=== PATIENT | male | born 1985 | race American Indian/Alaskan Native ===

== ENCOUNTER 2016-06-20 15:30 | Emergency (ER) | payer OTHER ==
[2016-06-20 17:36] LABS: Basophils % (Auto) 0.3 % (0.0-1.8); Eosinophils % (Auto) 1.4 % (0.0-4.3); Hematocrit 43.8 % (35.5-45.6); Hemoglobin 14.3 gm/dl (11.8-15.2); Mean Corpuscular HGB Conc 33 % (32-34); Mean Corpuscular Hemoglobin 31 pg (28-32); Mean Corpuscular Volume 94 fl (84-94); Platelet Count 212 K/mm3 (140-440); Red Blood Count 4.67 M/mm3 (3.65-5.03); Red Cell Distribution Width 13.6 % (13.2-15.2); White Blood Count 8.6 K/mm3 (4.5-11.0)
[2016-06-20 17:45] LABS: Anion Gap 15 mmol/L; Blood Urea Nitrogen 8 mg/dL (9-20); Carbon Dioxide 30 mmol/L (22-30); Glucose 79 mg/dL (75-100); Potassium 3.7 mmol/L (3.6-5.0); Sodium 141 mmol/L (137-145)
[2016-06-20 18:20] LABS: Urine Drugs of Abuse Note Disclamer
[2016-06-20 18:50] LABS: Bilirubin,Urine NEG (Negative); Blood,Urine NEG (Negative); Ketones,Urine NEG (Negative); Leukocyte Esterase,Urine NEG (Negative); Mucus,Urine 1+ /HPF; Nitrite,Urine NEG (Negative); Protein,Urine <15 mg/dL mg/dL (Negative); Urobilinogen,Urine < 2.0 mg/dL (<2.0)
--- NOTE | 2016-06-20 19:29 | Emergency Department Report ---
Chief Complaint: Psych Stated Complaint: SUICIDAL THOUGHTS/DEPRESSION Time Seen by Provider: 06/20/16 19:28 - HPI History of Present Illness: This is a 30-year-old patient who reports that he suicidal 2-3 years. He said his been having suicidal thoughts for 2-3 years. He said the plan is to do something quicken easily. He said he has a history of depression and ADHD but he is not on any treatment. She said he was on treatment in the past which worked very well but he stopped. He said that he is very emotional and sometimes gets angry and aggressive. He denies any elucidation. Denies any homicidal thoughts. - ROS Review of Systems: All systems are negative unless stated in HPI above. - Exam Vital Signs: Vital Signs 06/20/16 16:44 Temperature 98.3 F Pulse Rate 68 Respiratory 17 Rate Blood Pressure 121/81 O2 Sat by Pulse 98 Oximetry Physical Exam: General: This is a 30-year-old male well-nourished well-developed in no acute distress. Psych: Positive Suicide ideation . Negative homicide ideation. He developed hallucination. Lungs: clear to auscultate bilaterally, no rhonchi wheezes or rales. MSE screening note: Focused history and physical exam performed. Due to findings the following was ordered:see [facility] ED Medical Decision Making - Lab Data Result diagrams: 06/20/16 16:58 06/20/16 16:58 - Medical Decision Making Medical decision making: Patient seen by provider in triage area. Appropriate protocol activated and patient to main ED to be seen by physician. ED Disposition for MSE Condition: Stable
--- NOTE | 2016-06-20 20:55 | Emergency Department Report ---
HPI - General Chief Complaint: Psych Time Seen by Provider: 06/20/16 19:28 - HPI HPI: The patient is a 30-year-old male who presents for evaluation of mental health. The patient reports experiencing constant severe sadness for the past 2 days, exacerbated with arguing with this child's mother. He states that he experienced some transient thoughts of self-harm, but denies suicidal ideation and denies plan to commit suicide. The patient denies fever, headache, unexplained weight loss or weight gain, heat or cold intolerance, skin, hair, or nail changes, neuro deficits, homicidal ideations, or auditory or visual hallucinations. ED Past Medical Hx - Medications Home Medications: Home Medications Medication Instructions Recorded Confirmed Last Taken Type No Known Home Medications [No 06/20/16 06/20/16 Unknown History Reported Home Medications] ED Review of Systems ROS: Stated complaint: SUICIDAL THOUGHTS/DEPRESSION Other details as noted in HPI Constitutional: denies: fever ENT: denies: throat or neck pain Respiratory: denies: cough, shortness of breath Cardiovascular: denies: chest pain Endocrine: denies unexplained weight loss or gain Gastrointestinal: denies: abdominal pain, nausea Genitourinary: denies: dysuria Musculoskeletal: denies: leg swelling Skin: denies: rash Neurological: denies: headache Hematological/Lymphatic: denies: easy bleeding or easy bruising Psych: reports sadness, denies suicidal ideation Physical Exam - Physical Exam Vital Signs: Vital Signs 06/20/16 16:44 Temperature 98.3 F Pulse Rate 68 Respiratory 17 Rate Blood Pressure 121/81 O2 Sat by Pulse 98 Oximetry Physical Exam: General: well-nourished, well-developed, no acute distress Head: Normocephalic, atraumatic Eyes: normal sclera ENT: Mucous membranes are pink and moist Neck: trachea midline, neck supple, No neck stiffness, no cervical adenopathy Respiratory: Breath sounds equal bilaterally, no wheezing, rales, or rhonchi Cardio: S1 and S2 present, no murmurs, rubs, gallops, capillary refill is brisk Abdomen: Normoactive bowel sounds, soft abdomen, no rigidity, no guarding or rebound tenderness Musc: No pitting edema Skin: No rash Neuro: no facial drooping, normal speech Psych: Normal affect, normal insight, depressed mood, no suicidal ideation ED Course Vital Signs 06/20/16 16:44 Temperature 98.3 F Pulse Rate 68 Respiratory 17 Rate Blood Pressure 121/81 O2 Sat by Pulse 98 Oximetry ED Medical Decision Making - Lab Data Result diagrams: 06/20/16 16:58 06/20/16 16:58 - Medical Decision Making The patient was seen and examined by myself. The patient is placed on a manager cardiac cath and continuous pulse ox. On initial evaluation, the patient was found to be in no distress. Labs are obtained. Lab results are grossly unremarkable. The patient is medically clear. Mental health is consulted. Mental health evaluates the patient and agrees that the patient is negative for risk of harm to himself or others. The patient is stable for discharge with outpatient follow-up. The patient is given follow-up and return instructions. The patient expressed understanding and agreed with the plan. The patient is discharged in stable condition. Critical care attestation.: If time is entered above; I have spent that time in minutes in the direct care of this critically ill patient, excluding procedure time. ED Disposition Clinical Impression: Depression Qualifiers: Depression Type: unspecified Qualified Code(s): F32.9 - Major depressive disorder, single episode, unspecified Disposition: DISCHARGED TO HOME OR SELFCARE Is pt being admited?: No Does the pt Need Aspirin: No Condition: Stable Instructions: Suicide Prevention for Adults (ED), Depression (ED) Referrals: PRIMARY CARE, [Primary Care Provider] - 3-5 Days [facility] [Outside] - 3-5 Days Time of Disposition: 19:54
[2016-06-20] MEDS ORDERED: MILK OF MAGNESIA PO PRN (20:57)
[2016-06-20] MEDS ORDERED: ALUM-MAG HYDROX-SIMETH 200-200-20MG/5ML PO PRN (20:57)
[2016-06-20] MEDS ORDERED: TYLENOL PO PRN (20:57)
[2016-06-20] MEDS ORDERED: ATIVAN ONE (21:22)
[2016-06-20] MEDS ORDERED: ATIVAN IV ONE (21:24)
[2016-06-20] MEDS ORDERED: ATIVAN IM PRN (21:25)
[2016-06-21 01:08] VITALS: BP 142/92
== END 2016-06-20 21:40 | disposition home or self-care (01) ==
LOC: ED 15:30
DX: F32.9 Major depressive disorder, single episode, unspecified (principal)
CPT/HCPCS: 36415; 80048; 80307; 81001; 85025; 99284; G0480; J2060; 80320

== ENCOUNTER 2021-09-13 06:52 | Emergency (ER) | payer SELFPAY ==
--- NOTE | 2021-09-13 07:37 | XRay Report ---
Right elbow, 3 views HISTORY: Right elbow pain and swelling after fall COMPARISON: None FINDINGS: No acute fracture, malalignment, or significant joint capsular distention. There is promine nt soft tissue swelling of the dorsal elbow and proximal forearm. No soft tissue gas or radiopaque fo reign body. Signer Name: Yahir Isabel MD Signed: 09/13/2021 7:32 AM Workstation Name: [id number]
[2021-09-13] MEDS ORDERED: IBUPROFEN 800 MG TAB PO ONE (08:24)
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
[2021-09-13 08:46] VITALS: BP 134/90
== END 2021-09-13 08:45 | disposition home or self-care (01) ==
LOC: ED 06:52
DX: M25.521 Pain in right elbow (principal); M25.421 Effusion, right elbow
CPT/HCPCS: 99283; 99284